=== PATIENT | male | born 1955 | race Two or more races ===

== ENCOUNTER → 2025-02-17 | Outpatient (CLI) | payer OTHER, MEDICAID ==
[~2025-02-17] MED LIST: ALBUTEROL SULF 2.5 MG/0.5ML(0.5%) NEB SOLN ONE
--- NOTE | 2025-02-20 15:23 | DVHNC2 ---
Procedure - February 17, 2025 Pulmonary function test interpretation Moderate obstructive ventilatory defect. Significant bronchodilator response. FEV1 improved by 350 mL. Total lung capacity is within normal limits, 80% of predicted (5.87 L). Diffusion capacity is mildly reduced, 78% of predicted; not corrected for patient's hemoglobin. ROSITA ANGEL RESIDENT February 20, 2025 15:23
--- NOTE | 2025-02-20 15:26 | DVHNC2 ---
Procedure - February 17, 2025 6 minute walk test interpretation Completed 6 minutes of ambulation. Expected heart rate achieved. Significant hypoxia on exertion. O2 saturation went from 100% to 91%. Patient recovered within 3 minutes. Patient ambulated 1200 ft. ROSITA ANGEL RESIDENT February 20, 2025 15:26
== END | disposition home or self-care (01) ==
LOC: RT 10:02
PROVIDERS: ATTEND Internal Medicine Pulmonary Disease
DX: J44.9 Chronic obstructive pulmonary disease, unspecified (principal); R05.9 Cough, unspecified; I26.99 Other pulmonary embolism without acute cor pulmonale; R06.00 Dyspnea, unspecified; F17.210 Nicotine dependence, cigarettes, uncomplicated; Z79.51 Long term (current) use of inhaled steroids
CPT/HCPCS: 94060; 94618; 94727; 94729